=== PATIENT | female | born 1985 | race Caucasian/White ===

== ENCOUNTER 2024-04-17 21:22 | Emergency (ER) | payer MEDICAID ==
[2024-04-17] MEDS: Dexamethasone 4 MG/ML SDV PO ONE (23:14)
== END 2024-04-17 23:49 | disposition home or self-care (01) ==
LOC: MW.ED 21:22
DX: N61.1 Abscess of the breast and nipple (principal); J02.8 Acute pharyngitis due to other specified organisms
CPT/HCPCS: 87651; 99283; J1100

== ENCOUNTER 2024-05-05 12:15 | Emergency (ER) | payer MEDICAID ==
[2024-05-05] MEDS: Dexamethasone 4 MG Tab PO ONE (13:15)
== END 2024-05-05 13:21 | disposition home or self-care (01) ==
LOC: MW.ED 12:15
DX: H66.91 Otitis media, unspecified, right ear (principal)
CPT/HCPCS: 99282; J8540

== ENCOUNTER 2024-05-13 16:50 | Emergency (ER) | payer SELFPAY | END 2024-05-13 17:03 | disposition left against medical advice (07) | LOC: MW.ED 16:50 | DX: Z53.21 Procedure and treatment not carried out due to patient leaving prior to being seen by health care provider (principal) ==

== ENCOUNTER 2024-06-28 03:13 | Emergency (ER) | payer MEDICAID ==
[2024-06-28 03:36] LABS: APPEARANCE,URINE CLOUDY; GLUCOSE,URINE NEGATIVE (NEGATIVE); KETONES,URINE NEGATIVE (NEGATIVE); LEUKOCYTE ESTERASE,URINE NEGATIVE (NEGATIVE); NITRITE,URINE NEGATIVE (NEGATIVE); OCCULT BLOOD,URINE LARGE (NEGATIVE); PROTEIN,URINE 30 mg/dL (NEGATIVE); UROBILINOGEN,URINE 0.2 EU/dL (<2.0)
[2024-06-28 03:37] LABS: BILIRUBIN,URINE SMALL (NEGATIVE); COLOR,URINE PINK
[2024-06-28 03:39] LABS: BASOPHILS ABSOLUTE AUTO 0.04 K/uL (0.00-0.20); BASOPHILS PERCENT AUTO 0.4 % (0.0-1.0); EOSINOPHILS ABSOLUTE AUTO 0.19 K/uL (0.00-0.45); EOSINOPHILS PERCENT AUTO 2.1 % (0.0-6.0); HEMATOCRIT 34.3 % (37.0-47.0); HEMOGLOBIN 11.2 g/dL (12.0-16.0); IMMATURE GRAN ABSOLUTE AUTO 0.01 K/uL (0.00-0.05); IMMATURE GRAN PERCENT AUTO 0.1 % (0.0-0.4); LYMPHOCYTES ABSOLUTE AUTO 2.49 K/uL (1.00-4.80); LYMPHOCYTES PERCENT AUTO 27.9 % (24.0-44.0); MEAN CORPUSCULAR HEMOGLOBIN 24.6 pg (28.0-32.0); MEAN CORPUSCULAR HGB CONC 32.7 g/dL (32.0-36.0); MEAN CORPUSCULAR VOLUME 75.4 fL (83.0-99.0); MEAN PLATELET VOLUME 9.7 fL (9.4-12.3); MONOCYTES ABSOLUTE AUTO 0.55 K/uL (0.00-0.80); MONOCYTES PERCENT AUTO 6.2 % (0.0-8.0); NEUTROPHILS ABSOLUTE AUTO 5.66 K/uL (1.80-7.70); NEUTROPHILS PERCENT AUTO 63.3 % (41.0-71.0); PLATELET COUNT,PLT 315 K/uL (150-400); RED BLOOD CELL COUNT 4.55 M/uL (4.10-5.30); WHITE BLOOD CELL COUNT,WBC 8.94 K/uL (3.9-11.3)
[2024-06-28 03:43] LABS: BACTERIA,URINE FEW (NEGATIVE); EPITHELIAL CELLS,URINE RARE (NONE-FEW); RBC,URINE TOO NUMEROUS TO CT (0-2/HPF); WBC,URINE NONE SEEN (0-5/HPF)
[2024-06-28 03:53] LABS: CALCIUM 8.3 mg/dL (8.5-10.1); CARBON DIOXIDE,CO2 23.8 mmol/L (21.0-32.0); EST CRCL DRUG DOSING (CG) 75.63 mL/min
== END 2024-06-28 05:19 | disposition home or self-care (01) ==
LOC: MW.ED 03:13
DX: O20.0 Threatened abortion (principal); Z3A.01 Less than 8 weeks gestation of pregnancy; Z75.8 Other problems related to medical facilities and other health care
CPT/HCPCS: 36415; 76817; 76817-26; 80048; 81001; 81025; 84702; 85025; 86900; 86901; 99284

== ENCOUNTER 2025-01-29 16:54 | Inpatient (IN) | payer MEDICAID ==
[2025-01-29] MEDS ORDERED: Misoprostol 25 MCG (1/4 of 100 MCG) Tab VAG PRN (18:14)
[2025-01-29] MEDS ORDERED: Sodium Chloride 0.9% 2.5 ML Syringe FLUSH PRN (18:14)
[2025-01-29] MEDS ORDERED: Water For Irrigation,Sterile 1,000 ML Container IRR PRN (18:14)
[2025-01-29] MEDS ORDERED: Terbutaline 1 MG/ML SDV SUBCUT PRN (18:14)
[2025-01-29] MEDS ORDERED: Sodium Chloride 0.9% 10 ML Syringe FLUSH PRN (18:14)
[2025-01-29] MEDS ORDERED: Carboprost Tromethamine 250 MCG/1 mL Vial IM PRN (18:14)
[2025-01-29] MEDS: Misoprostol 25 MCG (1/4 of 100 MCG) Tab PO ONE (18:56)
[2025-01-29 18:58] LABS: IMMATURE GRAN ABSOLUTE AUTO 0.03 K/uL (0.00-0.05); IMMATURE GRAN PERCENT AUTO 0.3 % (0.0-0.4); MEAN PLATELET VOLUME 10.5 fL (9.4-12.3); NRBC ABSOLUTE 0.00 K/uL (0.00-0.02); NRBC PERCENT 0.0 /100WBC (0.0-0.2); PLATELET COUNT,PLT 261 K/uL (150-400); RED BLOOD CELL COUNT 4.51 M/uL (4.10-5.30); WHITE BLOOD CELL COUNT,WBC 8.95 K/uL (3.9-11.3)
[2025-01-29] MEDS: Misoprostol 25 MCG (1/4 of 100 MCG) Tab VAG PRN (19:06)
[2025-01-29] MEDS ORDERED: 50% Dextrose in Water 50 ML Syringe IVPUSH PRN (19:08)
[2025-01-29 19:23] LABS: A/G RATIO 0.8 (0.9-1.6); ALANINE AMINOTRANSFERASE,ALT 39.0 IU/L (14-63); ASPARTATE AMNIOTRANSFERASE,AST 20.0 IU/L (15-37); BILIRUBIN TOTAL 0.3 mg/dL (0.2-1.0); BLOOD UREA NITROGEN,BUN 10.0 mg/dL (7.0-18.0); CARBON DIOXIDE,CO2 24.4 mmol/L (21.0-32.0); CHLORIDE,CL 102.0 mmol/L (98-107); CREATININE 0.9 mg/dL (0.6-1.0); EST CRCL DRUG DOSING (CG) 83.23 mL/min; GLUCOSE RANDOM 100.0 mg/dL (74-106); POTASSIUM,K 3.8 mmol/L (3.5-5.1); PROTEIN TOTAL,TP 6.6 g/dL (6.4-8.2); SODIUM,NA 138.0 mmol/L (136-145)
[2025-01-29 19:25] LABS: ESTIMATED GFR 84.0 mL/min (>60)
[2025-01-29] MEDS: Insulin Glargine,Human Rec. Analog 100 Units/ML 3 ML Pen SUBCUT SCH (20:26)
[2025-01-29] MEDS ORDERED: Calcium Gluconate 10% 1 GM/10 ML SDV IV PRN (22:11)
[2025-01-29 22:28] LABS: CREATININE,URINE RAND 162.6 mg/dL; PROTEIN CREATININE RATIO,URINE 0.2; PROTEIN,URINE RANDOM 27.6 mg/dL (<11.9)
[2025-01-29] MEDS: Misoprostol 25 MCG (1/4 of 100 MCG) Tab PO SCH (23:00)
[2025-01-29] MEDS: Magnesium Sulfate 2 GM/50 mL 2 GM in Premix Bag 1 BAG IV ONE (23:11)
[2025-01-29] MEDS: Magnesium Sulfate 4 GM/100 mL 4 GM in Premix Bag 1 BAG IV ONE (23:11)
[2025-01-30] MEDS: Butorphanol 1 MG/ML SDV IVPUSH PRN (01:24)
[2025-01-30] MEDS ORDERED: 50% Dextrose in Water 50 ML Syringe IVPUSH PRN (04:25)
[2025-01-30] MEDS: Misoprostol 50 MCG (1/2 of 100 MCG) Tab VAG ONE (05:19)
[2025-01-30] MEDS: Lactated Ringers 1,000 ML IV SCH (05:22)
[2025-01-30] MEDS ORDERED: dexmedeTOMIDine HCl 200 MCG/2 ML SDV ONE (05:59)
[2025-01-30] MEDS ORDERED: Ropivacaine HCl/PF 200 ML ONE (05:59)
[2025-01-30] MEDS: Ropivacaine HCl/PF 400 MG in Premix Bag 1 BAG EPIDUR SCH (06:07)
[2025-01-30] MEDS ORDERED: ePHEDrine 50 MG/ML SDV IVPUSH PRN (06:23)
[2025-01-30] MEDS ORDERED: dexmedeTOMIDine HCl 200 MCG/2 ML SDV EPIDUR SCH (06:30)
[2025-01-30] MEDS: hydrALAZINE 20 MG/ML SDV IVPUSH PRN (06:38)
[2025-01-30] MEDS ORDERED: Sodium Chloride 0.9% 2.5 ML Syringe FLUSH PRN (06:56)
[2025-01-30] MEDS: Magnesium Sulfate 2 GM/50 mL 2 GM in Premix Bag 1 BAG IV ONE (07:12)
[2025-01-30] MEDS: Magnesium Sulfate 4 GM/100 mL 4 GM in Premix Bag 1 BAG IV ONE (07:23)
[2025-01-30] MEDS: Magnesium Sulfate 20 GM/500mL 20 GM/500 ML BAG IV SCH (07:45)
[2025-01-30] MEDS: Misoprostol 25 MCG (1/4 of 100 MCG) Tab VAG ONE (09:12)
[2025-01-30] MEDS: Ondansetron 4 MG/2 ML SDV IVPUSH PRN (10:10)
[2025-01-30] MEDS: Insulin Regular, Human 100 Units/ML 10 ML Vial SUBCUT PRN (12:00)
[2025-01-30] MEDS: Oxytocin/0.9 % Sodium Chloride 30 UNIT/500 ML BAG IV SCH (14:10)
[2025-01-30] MEDS: diphenhydrAMINE 50 MG/ML SDV IVPUSH ONE ×2 (22:02→22:38)
[2025-01-30] MEDS ORDERED: fentaNYL 100 MCG/2 ML SDV ONE (22:59)
[2025-01-31] MEDS: Oxytocin/0.9 % Sodium Chloride 30 UNIT/500 ML BAG IV SCH (06:33)
[2025-01-31] MEDS ORDERED: Lanolin 100% Cream 7 GM Tube TOP PRN (06:46)
[2025-01-31] MEDS ORDERED: Witch Hazel Medicated Pads 40/Jar TOP PRN (06:46)
[2025-01-31] MEDS ORDERED: Benzocaine/Menthol 20%-0.5% Spray 78 GM Cannister TOP PRN (06:46)
[2025-01-31] MEDS ORDERED: Oxytocin/0.9 % Sodium Chloride 30 UNIT/500 ML BAG IV SCH (07:00)
[2025-01-31] MEDS: ceFAZolin 2 GM in Water For Injection, Sterile 20 ML IVPUSH SCH (07:51)
[2025-02-01 08:54] LABS: A/G RATIO 0.6 (0.9-1.6); ALANINE AMINOTRANSFERASE,ALT 34.0 IU/L (14-63); ASPARTATE AMNIOTRANSFERASE,AST 28.0 IU/L (15-37); BILIRUBIN TOTAL 0.2 mg/dL (0.2-1.0); BLOOD UREA NITROGEN,BUN 14.0 mg/dL (7.0-18.0); CARBON DIOXIDE,CO2 21.1 mmol/L (21.0-32.0); CHLORIDE,CL 106.0 mmol/L (98-107); CREATININE 0.9 mg/dL (0.6-1.0); EST CRCL DRUG DOSING (CG) 83.23 mL/min; GLUCOSE RANDOM 100.0 mg/dL (74-106); POTASSIUM,K 3.9 mmol/L (3.5-5.1); PROTEIN TOTAL,TP 5.7 g/dL (6.4-8.2); SODIUM,NA 138.0 mmol/L (136-145)
[2025-02-01 08:57] LABS: ESTIMATED GFR 84.0 mL/min (>60)
[2025-02-01 08:58] LABS: BASOPHILS ABSOLUTE AUTO 0.02 K/uL (0.00-0.20); BASOPHILS PERCENT AUTO 0.2 % (0.0-1.0); EOSINOPHILS ABSOLUTE AUTO 0.26 K/uL (0.00-0.45); EOSINOPHILS PERCENT AUTO 3.0 % (0.0-6.0); IMMATURE GRAN ABSOLUTE AUTO 0.02 K/uL (0.00-0.05); IMMATURE GRAN PERCENT AUTO 0.2 % (0.0-0.4); LYMPHOCYTES ABSOLUTE AUTO 1.62 K/uL (1.00-4.80); LYMPHOCYTES PERCENT AUTO 18.5 % (24.0-44.0); MEAN PLATELET VOLUME 10.7 fL (9.4-12.3); MONOCYTES ABSOLUTE AUTO 0.46 K/uL (0.00-0.80); MONOCYTES PERCENT AUTO 5.3 % (0.0-8.0); NEUTROPHILS ABSOLUTE AUTO 6.37 K/uL (1.80-7.70); NEUTROPHILS PERCENT AUTO 72.8 % (41.0-71.0); NRBC ABSOLUTE 0.00 K/uL (0.00-0.02); NRBC PERCENT 0.0 /100WBC (0.0-0.2); PLATELET COUNT,PLT 262 K/uL (150-400); RED BLOOD CELL COUNT 3.66 M/uL (4.10-5.30); WHITE BLOOD CELL COUNT,WBC 8.75 K/uL (3.9-11.3)
[2025-02-01] MEDS: Sodium Ferric Gluconate Cmplex 125 MG in Sodium Chloride 0.9% 100 ML IV SCH (09:03)
[2025-02-01] MEDS: NIFEdipine 30 MG Tab.ER PO SCH (09:08)
[2025-02-02 06:12] LABS: BASOPHILS ABSOLUTE AUTO 0.04 K/uL (0.00-0.20); BASOPHILS PERCENT AUTO 0.5 % (0.0-1.0); EOSINOPHILS ABSOLUTE AUTO 0.27 K/uL (0.00-0.45); EOSINOPHILS PERCENT AUTO 3.6 % (0.0-6.0); IMMATURE GRAN ABSOLUTE AUTO 0.03 K/uL (0.00-0.05); IMMATURE GRAN PERCENT AUTO 0.4 % (0.0-0.4); LYMPHOCYTES ABSOLUTE AUTO 1.81 K/uL (1.00-4.80); LYMPHOCYTES PERCENT AUTO 24.1 % (24.0-44.0); MEAN PLATELET VOLUME 10.0 fL (9.4-12.3); MONOCYTES ABSOLUTE AUTO 0.42 K/uL (0.00-0.80); MONOCYTES PERCENT AUTO 5.6 % (0.0-8.0); NEUTROPHILS ABSOLUTE AUTO 4.93 K/uL (1.80-7.70); NEUTROPHILS PERCENT AUTO 65.8 % (41.0-71.0); NRBC ABSOLUTE 0.00 K/uL (0.00-0.02); NRBC PERCENT 0.0 /100WBC (0.0-0.2); PLATELET COUNT,PLT 263 K/uL (150-400); RED BLOOD CELL COUNT 3.58 M/uL (4.10-5.30); WHITE BLOOD CELL COUNT,WBC 7.50 K/uL (3.9-11.3)
[2025-02-02 06:36] LABS: A/G RATIO 0.7 (0.9-1.6); ALANINE AMINOTRANSFERASE,ALT 29.0 IU/L (14-63); ASPARTATE AMNIOTRANSFERASE,AST 22.0 IU/L (15-37); BILIRUBIN TOTAL 0.2 mg/dL (0.2-1.0); BLOOD UREA NITROGEN,BUN 23.0 mg/dL (7.0-18.0); CARBON DIOXIDE,CO2 23.6 mmol/L (21.0-32.0); CHLORIDE,CL 107.0 mmol/L (98-107); CREATININE 0.9 mg/dL (0.6-1.0); EST CRCL DRUG DOSING (CG) 83.23 mL/min; GLUCOSE RANDOM 83.0 mg/dL (74-106); POTASSIUM,K 4.0 mmol/L (3.5-5.1); PROTEIN TOTAL,TP 6.1 g/dL (6.4-8.2); SODIUM,NA 144.0 mmol/L (136-145)
[2025-02-02 06:37] LABS: ESTIMATED GFR 84.0 mL/min (>60)
[2025-02-02] MEDS: NIFEdipine 30 MG Tab.ER PO STA ×2 (10:24→18:32)
[2025-02-02 13:05] LABS: BASOPHILS ABSOLUTE AUTO 0.02 K/uL (0.00-0.20); BASOPHILS PERCENT AUTO 0.3 % (0.0-1.0); EOSINOPHILS ABSOLUTE AUTO 0.28 K/uL (0.00-0.45); EOSINOPHILS PERCENT AUTO 4.1 % (0.0-6.0); IMMATURE GRAN ABSOLUTE AUTO 0.02 K/uL (0.00-0.05); IMMATURE GRAN PERCENT AUTO 0.3 % (0.0-0.4); LYMPHOCYTES ABSOLUTE AUTO 1.37 K/uL (1.00-4.80); LYMPHOCYTES PERCENT AUTO 20.1 % (24.0-44.0); MEAN PLATELET VOLUME 9.7 fL (9.4-12.3); MONOCYTES ABSOLUTE AUTO 0.32 K/uL (0.00-0.80); MONOCYTES PERCENT AUTO 4.7 % (0.0-8.0); NEUTROPHILS ABSOLUTE AUTO 4.81 K/uL (1.80-7.70); NEUTROPHILS PERCENT AUTO 70.5 % (41.0-71.0); NRBC ABSOLUTE 0.00 K/uL (0.00-0.02); NRBC PERCENT 0.0 /100WBC (0.0-0.2); PLATELET COUNT,PLT 261 K/uL (150-400); RED BLOOD CELL COUNT 3.47 M/uL (4.10-5.30); WHITE BLOOD CELL COUNT,WBC 6.82 K/uL (3.9-11.3)
[2025-02-02] MEDS: Labetalol 100 MG/20 ML MDV IVPUSH PRN (13:08)
[2025-02-02 13:30] LABS: A/G RATIO 0.7 (0.9-1.6); ALANINE AMINOTRANSFERASE,ALT 38.0 IU/L (14-63); ASPARTATE AMNIOTRANSFERASE,AST 29.0 IU/L (15-37); BILIRUBIN TOTAL 0.2 mg/dL (0.2-1.0); BLOOD UREA NITROGEN,BUN 19.0 mg/dL (7.0-18.0); CARBON DIOXIDE,CO2 23.1 mmol/L (21.0-32.0); CHLORIDE,CL 104.0 mmol/L (98-107); CREATININE 0.9 mg/dL (0.6-1.0); EST CRCL DRUG DOSING (CG) 83.23 mL/min; GLUCOSE RANDOM 111.0 mg/dL (74-106); POTASSIUM,K 3.9 mmol/L (3.5-5.1); PROTEIN TOTAL,TP 6.0 g/dL (6.4-8.2); SODIUM,NA 139.0 mmol/L (136-145)
[2025-02-02] MEDS: Magnesium Sulfate 20 GM/500mL 20 GM/500 ML BAG IV SCH (13:32)
[2025-02-02 13:34] LABS: ESTIMATED GFR 84.0 mL/min (>60)
[2025-02-02 16:33] LABS: CREATININE,URINE RAND 79.8 mg/dL; PROTEIN CREATININE RATIO,URINE 0.7; PROTEIN,URINE RANDOM 56.8 mg/dL (<11.9)
[2025-02-02] MEDS: Labetalol 100 MG/20 ML MDV ONE (17:34)
[2025-02-02 19:45] LABS: INR < 0.93 (0.86-1.11)
[2025-02-03 05:27] LABS: BASOPHILS ABSOLUTE AUTO 0.02 K/uL (0.00-0.20); BASOPHILS PERCENT AUTO 0.3 % (0.0-1.0); EOSINOPHILS ABSOLUTE AUTO 0.28 K/uL (0.00-0.45); EOSINOPHILS PERCENT AUTO 4.5 % (0.0-6.0); IMMATURE GRAN ABSOLUTE AUTO 0.01 K/uL (0.00-0.05); IMMATURE GRAN PERCENT AUTO 0.2 % (0.0-0.4); LYMPHOCYTES ABSOLUTE AUTO 1.56 K/uL (1.00-4.80); LYMPHOCYTES PERCENT AUTO 25.1 % (24.0-44.0); MEAN PLATELET VOLUME 9.6 fL (9.4-12.3); MONOCYTES ABSOLUTE AUTO 0.35 K/uL (0.00-0.80); MONOCYTES PERCENT AUTO 5.6 % (0.0-8.0); NEUTROPHILS ABSOLUTE AUTO 4.00 K/uL (1.80-7.70); NEUTROPHILS PERCENT AUTO 64.3 % (41.0-71.0); NRBC ABSOLUTE 0.00 K/uL (0.00-0.02); NRBC PERCENT 0.0 /100WBC (0.0-0.2); PLATELET COUNT,PLT 261 K/uL (150-400); RED BLOOD CELL COUNT 3.44 M/uL (4.10-5.30); WHITE BLOOD CELL COUNT,WBC 6.22 K/uL (3.9-11.3)
[2025-02-03 05:51] LABS: A/G RATIO 0.8 (0.9-1.6); ALANINE AMINOTRANSFERASE,ALT 42.0 IU/L (14-63); ASPARTATE AMNIOTRANSFERASE,AST 44.0 IU/L (15-37); BILIRUBIN TOTAL 0.3 mg/dL (0.2-1.0); BLOOD UREA NITROGEN,BUN 15.0 mg/dL (7.0-18.0); CARBON DIOXIDE,CO2 26.4 mmol/L (21.0-32.0); CHLORIDE,CL 106.0 mmol/L (98-107); CREATININE 0.9 mg/dL (0.6-1.0); EST CRCL DRUG DOSING (CG) 83.23 mL/min; GLUCOSE RANDOM 92.0 mg/dL (74-106); POTASSIUM,K 3.9 mmol/L (3.5-5.1); PROTEIN TOTAL,TP 5.8 g/dL (6.4-8.2); SODIUM,NA 142.0 mmol/L (136-145)
[2025-02-03 05:55] LABS: ESTIMATED GFR 84.0 mL/min (>60)
[2025-02-03] MEDS: Sodium Chloride 0.9% 10 ML Syringe FLUSH PRN (07:35)
[2025-02-03 08:08] LABS: CREATININE,URINE RAND 56.7 mg/dL; PROTEIN CREATININE RATIO,URINE 0.5; PROTEIN,URINE RANDOM 28.4 mg/dL (<11.9)
[2025-02-03] MEDS: NIFEdipine 30 MG Tab.ER PO SCH (09:09)
[2025-02-04] MEDS: SODIUM CHLORIDE 0.9% IV ONE (10:05)
[2025-02-04] MEDS: SODIUM FERRIC GLUCONATE CMPLEX IV ONE (10:05)
[2025-02-04] MEDS: Magnesium Sulfate 4 GM/100 mL 4 GM in Premix Bag 1 BAG IV ONE (10:57)
[2025-02-04] MEDS ORDERED: Calcium Gluconate 10% 1 GM/10 ML SDV IV PRN (10:59)
[2025-02-04] MEDS ORDERED: Sodium Chloride 0.9% 10 ML Syringe FLUSH PRN (10:59)
[2025-02-04] MEDS ORDERED: Sodium Chloride 0.9% 2.5 ML Syringe FLUSH PRN (10:59)
[2025-02-04] MEDS: Magnesium Sulfate 20 GM/500mL 20 GM/500 ML BAG IV SCH (11:17)
[2025-02-04 13:19] LABS: BASOPHILS ABSOLUTE AUTO 0.03 K/uL (0.00-0.20); BASOPHILS PERCENT AUTO 0.4 % (0.0-1.0); EOSINOPHILS ABSOLUTE AUTO 0.27 K/uL (0.00-0.45); EOSINOPHILS PERCENT AUTO 3.2 % (0.0-6.0); IMMATURE GRAN ABSOLUTE AUTO 0.08 K/uL (0.00-0.05); IMMATURE GRAN PERCENT AUTO 1.0 % (0.0-0.4); LYMPHOCYTES ABSOLUTE AUTO 1.54 K/uL (1.00-4.80); LYMPHOCYTES PERCENT AUTO 18.5 % (24.0-44.0); MEAN PLATELET VOLUME 9.6 fL (9.4-12.3); MONOCYTES ABSOLUTE AUTO 0.44 K/uL (0.00-0.80); MONOCYTES PERCENT AUTO 5.3 % (0.0-8.0); NEUTROPHILS ABSOLUTE AUTO 5.98 K/uL (1.80-7.70); NEUTROPHILS PERCENT AUTO 71.6 % (41.0-71.0); NRBC ABSOLUTE 0.00 K/uL (0.00-0.02); NRBC PERCENT 0.0 /100WBC (0.0-0.2); PLATELET COUNT,PLT 332 K/uL (150-400); RED BLOOD CELL COUNT 3.88 M/uL (4.10-5.30); WHITE BLOOD CELL COUNT,WBC 8.34 K/uL (3.9-11.3)
[2025-02-04 13:40] LABS: A/G RATIO 0.8 (0.9-1.6); ALANINE AMINOTRANSFERASE,ALT 65.0 IU/L (14-63); ASPARTATE AMNIOTRANSFERASE,AST 49.0 IU/L (15-37); BILIRUBIN TOTAL 0.2 mg/dL (0.2-1.0); BLOOD UREA NITROGEN,BUN 14.0 mg/dL (7.0-18.0); CARBON DIOXIDE,CO2 25.3 mmol/L (21.0-32.0); CHLORIDE,CL 104.0 mmol/L (98-107); CREATININE 0.9 mg/dL (0.6-1.0); EST CRCL DRUG DOSING (CG) 83.23 mL/min; GLUCOSE RANDOM 106.0 mg/dL (74-106); POTASSIUM,K 4.2 mmol/L (3.5-5.1); PROTEIN TOTAL,TP 6.6 g/dL (6.4-8.2); SODIUM,NA 140.0 mmol/L (136-145)
[2025-02-04 13:42] LABS: ESTIMATED GFR 84.0 mL/min (>60)
[2025-02-04] MEDS: Labetalol 100 MG/20 ML MDV ONE (14:30)
[2025-02-04] MEDS ORDERED: Benzocaine/Menthol 20%-0.5% Spray 78 GM Cannister TOP PRN (16:07)
[2025-02-04 17:02] LABS: CREATININE,URINE RAND 15.8 mg/dL; PROTEIN CREATININE RATIO,URINE 0.9; PROTEIN,URINE RANDOM 13.7 mg/dL (<11.9)
[2025-02-04] MEDS ORDERED: Labetalol 100 MG/20 ML MDV ONE (18:04)
[2025-02-04] MEDS: NIFEdipine 30 MG Tab.ER PO SCH (21:04)
[2025-02-05] MEDS: Labetalol 100 MG/20 ML MDV IVPUSH PRN
[2025-02-05 08:15] LABS: BASOPHILS ABSOLUTE AUTO 0.04 K/uL (0.00-0.20); BASOPHILS PERCENT AUTO 0.5 % (0.0-1.0); EOSINOPHILS ABSOLUTE AUTO 0.26 K/uL (0.00-0.45); EOSINOPHILS PERCENT AUTO 3.1 % (0.0-6.0); IMMATURE GRAN ABSOLUTE AUTO 0.11 K/uL (0.00-0.05); IMMATURE GRAN PERCENT AUTO 1.3 % (0.0-0.4); LYMPHOCYTES ABSOLUTE AUTO 1.38 K/uL (1.00-4.80); LYMPHOCYTES PERCENT AUTO 16.5 % (24.0-44.0); MEAN PLATELET VOLUME 9.6 fL (9.4-12.3); MONOCYTES ABSOLUTE AUTO 0.47 K/uL (0.00-0.80); MONOCYTES PERCENT AUTO 5.6 % (0.0-8.0); NEUTROPHILS ABSOLUTE AUTO 6.10 K/uL (1.80-7.70); NEUTROPHILS PERCENT AUTO 73.0 % (41.0-71.0); NRBC ABSOLUTE 0.00 K/uL (0.00-0.02); NRBC PERCENT 0.0 /100WBC (0.0-0.2); PLATELET COUNT,PLT 373 K/uL (150-400); RED BLOOD CELL COUNT 4.04 M/uL (4.10-5.30); WHITE BLOOD CELL COUNT,WBC 8.36 K/uL (3.9-11.3)
[2025-02-05 08:58] LABS: A/G RATIO 0.8 (0.9-1.6); ALANINE AMINOTRANSFERASE,ALT 78.0 IU/L (14-63); ASPARTATE AMNIOTRANSFERASE,AST 52.0 IU/L (15-37); BILIRUBIN TOTAL 0.3 mg/dL (0.2-1.0); BLOOD UREA NITROGEN,BUN 12.0 mg/dL (7.0-18.0); CARBON DIOXIDE,CO2 23.7 mmol/L (21.0-32.0); CHLORIDE,CL 104.0 mmol/L (98-107); CREATININE 1.0 mg/dL (0.6-1.0); EST CRCL DRUG DOSING (CG) 74.9 mL/min; GLUCOSE RANDOM 120.0 mg/dL (74-106); POTASSIUM,K 4.6 mmol/L (3.5-5.1); PROTEIN TOTAL,TP 6.9 g/dL (6.4-8.2); SODIUM,NA 139.0 mmol/L (136-145)
[2025-02-05 08:59] LABS: ESTIMATED GFR 74.0 mL/min (>60)
[2025-02-05] MEDS: niCARdipine/Normal Saline 20 MG in Premix Bag 1 BAG IV SCH (10:12)
[2025-02-05] MEDS: NIFEdipine 30 MG Tab.ER PO SCH (11:15)
[2025-02-06 04:23] LABS: BASOPHILS ABSOLUTE AUTO 0.02 K/uL (0.00-0.20); BASOPHILS PERCENT AUTO 0.2 % (0.0-1.0); EOSINOPHILS ABSOLUTE AUTO 0.27 K/uL (0.00-0.45); EOSINOPHILS PERCENT AUTO 3.1 % (0.0-6.0); IMMATURE GRAN ABSOLUTE AUTO 0.11 K/uL (0.00-0.05); IMMATURE GRAN PERCENT AUTO 1.2 % (0.0-0.4); LYMPHOCYTES ABSOLUTE AUTO 1.60 K/uL (1.00-4.80); LYMPHOCYTES PERCENT AUTO 18.1 % (24.0-44.0); MEAN PLATELET VOLUME 9.3 fL (9.4-12.3); MONOCYTES ABSOLUTE AUTO 0.63 K/uL (0.00-0.80); MONOCYTES PERCENT AUTO 7.1 % (0.0-8.0); NEUTROPHILS ABSOLUTE AUTO 6.21 K/uL (1.80-7.70); NEUTROPHILS PERCENT AUTO 70.3 % (41.0-71.0); NRBC ABSOLUTE 0.00 K/uL (0.00-0.02); NRBC PERCENT 0.0 /100WBC (0.0-0.2); PLATELET COUNT,PLT 377 K/uL (150-400); RED BLOOD CELL COUNT 3.95 M/uL (4.10-5.30); WHITE BLOOD CELL COUNT,WBC 8.84 K/uL (3.9-11.3)
[2025-02-06 04:46] LABS: A/G RATIO 0.9 (0.9-1.6); ALANINE AMINOTRANSFERASE,ALT 78.0 IU/L (14-63); ASPARTATE AMNIOTRANSFERASE,AST 43.0 IU/L (15-37); BILIRUBIN TOTAL 0.3 mg/dL (0.2-1.0); BLOOD UREA NITROGEN,BUN 13.0 mg/dL (7.0-18.0); CARBON DIOXIDE,CO2 25.0 mmol/L (21.0-32.0); CHLORIDE,CL 105.0 mmol/L (98-107); CREATININE 1.0 mg/dL (0.6-1.0); EST CRCL DRUG DOSING (CG) 74.9 mL/min; GLUCOSE RANDOM 132.0 mg/dL (74-106); POTASSIUM,K 4.0 mmol/L (3.5-5.1); PROTEIN TOTAL,TP 6.5 g/dL (6.4-8.2); SODIUM,NA 141.0 mmol/L (136-145)
[2025-02-06 04:53] LABS: ESTIMATED GFR 74.0 mL/min (>60)
[2025-02-06] MEDS: Magnesium Sulfate 20 GM/500mL 20 GM/500 ML BAG IV SCH (05:26)
[2025-02-06 18:26] LABS: A/G RATIO 0.9 (0.9-1.6); ALANINE AMINOTRANSFERASE,ALT 97.0 IU/L (14-63); ASPARTATE AMNIOTRANSFERASE,AST 45.0 IU/L (15-37); BILIRUBIN TOTAL 0.4 mg/dL (0.2-1.0); BLOOD UREA NITROGEN,BUN 15.0 mg/dL (7.0-18.0); CARBON DIOXIDE,CO2 23.9 mmol/L (21.0-32.0); CHLORIDE,CL 102.0 mmol/L (98-107); CREATININE 1.1 mg/dL (0.6-1.0); EST CRCL DRUG DOSING (CG) 68.09 mL/min; ESTIMATED GFR 66.0 mL/min (>60); GLUCOSE RANDOM 111.0 mg/dL (74-106); POTASSIUM,K 4.3 mmol/L (3.5-5.1); PROTEIN TOTAL,TP 7.4 g/dL (6.4-8.2); SODIUM,NA 137.0 mmol/L (136-145)
== END 2025-02-06 21:50 | disposition home or self-care (01) | DRG 806 ==
LOC: MW.OBCHECK 16:54 → MW.OB 16:55 → MW.OBCHECK 01-30 20:39 → MW.OB 01-30 20:40 → OBSVTOIN 01-31 06:05 → MW.OB 01-31 21:25 → MW.ICU 02-05 08:50 → MW.OB 02-06 15:10
PROVIDERS: ADMIT Obstetrics & Gynecology; ATTEND Obstetrics & Gynecology
PROC: 10E0XZZ Delivery of Products of Conception, External Approach (ICD-10-PCS; principal; 2025-01-31)
PROC: 3E0R3BZ Introduction of Anesthetic Agent into Spinal Canal, Percutaneous Approach (ICD-10-PCS; 2025-01-31)
PROC: 0HQ9XZZ Repair Perineum Skin, External Approach (ICD-10-PCS; 2025-01-31)
PROC: 3E0DXGC Introduction of Other Therapeutic Substance into Mouth and Pharynx, External Approach (ICD-10-PCS; 2025-01-31)
PROC: 0U7C7DJ Dilation of Cervix with Intraluminal Device, Temporary, Via Natural or Artificial Opening (ICD-10-PCS; 2025-01-31)
DX: O10.92 Unspecified pre-existing hypertension complicating childbirth (principal); O72.1 Other immediate postpartum hemorrhage; Z37.0 Single live birth; O14.14 Severe pre-eclampsia complicating childbirth; R74.01 Elevation of levels of liver transaminase levels; O24.420 Gestational diabetes mellitus in childbirth, diet controlled; O99.214 Obesity complicating childbirth; E66.01 Morbid (severe) obesity due to excess calories; O90.81 Anemia of the puerperium; O73.0 Retained placenta without hemorrhage; O70.0 First degree perineal laceration during delivery; Z79.82 Long term (current) use of aspirin; Z79.4 Long term (current) use of insulin; Z79.899 Other long term (current) drug therapy; Z3A.37 37 weeks gestation of pregnancy
CPT/HCPCS: 01967; 36415; 51702; 59025; 59409; 80053; 82570; 82947; 83605; 83735; 84156; 84550; 85025; 85027; 85384; 85610; 86592; 86850; 86900; 86901; 93971-26-LT; 93971-LT; A4216; A9270-GY; J0360; J0595; J0665; J0690; J1200; J1815-GY; J1920; J2371; J2405; J2590; J2795; J2916; J3010; J3475; J3490; J7120

== ENCOUNTER 2025-03-09 18:23 | Emergency (ER) | payer MEDICAID, OTHER ==
[2025-03-09 19:36] LABS: BASOPHILS ABSOLUTE AUTO 0.03 K/uL (0.00-0.20); BASOPHILS PERCENT AUTO 0.3 % (0.0-1.0); EOSINOPHILS ABSOLUTE AUTO 0.25 K/uL (0.00-0.45); EOSINOPHILS PERCENT AUTO 2.2 % (0.0-6.0); IMMATURE GRAN ABSOLUTE AUTO 0.04 K/uL (0.00-0.05); IMMATURE GRAN PERCENT AUTO 0.4 % (0.0-0.4); LYMPHOCYTES ABSOLUTE AUTO 2.01 K/uL (1.00-4.80); LYMPHOCYTES PERCENT AUTO 18.0 % (24.0-44.0); MEAN PLATELET VOLUME 9.6 fL (9.4-12.3); MONOCYTES ABSOLUTE AUTO 0.55 K/uL (0.00-0.80); MONOCYTES PERCENT AUTO 4.9 % (0.0-8.0); NEUTROPHILS ABSOLUTE AUTO 8.28 K/uL (1.80-7.70); NEUTROPHILS PERCENT AUTO 74.2 % (41.0-71.0); NRBC ABSOLUTE 0.00 K/uL (0.00-0.02); NRBC PERCENT 0.0 /100WBC (0.0-0.2); PLATELET COUNT,PLT 357 K/uL (150-400); RED BLOOD CELL COUNT 4.61 M/uL (4.10-5.30); WHITE BLOOD CELL COUNT,WBC 11.16 K/uL (3.9-11.3)
[2025-03-09 19:57] LABS: A/G RATIO 1.1 (0.9-1.6); ALANINE AMINOTRANSFERASE,ALT 67.0 IU/L (14-63); ASPARTATE AMNIOTRANSFERASE,AST 28.0 IU/L (15-37); BILIRUBIN TOTAL 0.2 mg/dL (0.2-1.0); BLOOD UREA NITROGEN,BUN 13.0 mg/dL (7.0-18.0); CARBON DIOXIDE,CO2 30.0 mmol/L (21.0-32.0); CHLORIDE,CL 104.0 mmol/L (98-107); CREATININE 1.0 mg/dL (0.6-1.0); EST CRCL DRUG DOSING (CG) 74.9 mL/min; GLUCOSE RANDOM 118.0 mg/dL (74-106); POTASSIUM,K 3.7 mmol/L (3.5-5.1); PROTEIN TOTAL,TP 7.4 g/dL (6.4-8.2); SODIUM,NA 143.0 mmol/L (136-145)
[2025-03-09 20:10] LABS: ESTIMATED GFR 74.0 mL/min (>60)
[2025-03-09] MEDS: Acetaminophen/HYDROcodone 325-5 MG Tab PO ONE (20:39)
== END 2025-03-09 20:51 | disposition home or self-care (01) ==
LOC: MW.ED 18:23
DX: O99.355 Diseases of the nervous system complicating the puerperium (principal); G97.82 Other postprocedural complications and disorders of nervous system; O10.93 Unspecified pre-existing hypertension complicating the puerperium; Z79.899 Other long term (current) drug therapy
CPT/HCPCS: 36415; 80053; 85025; 85379; 93971; 99284; A9270

== ENCOUNTER 2025-03-16 14:36 | Emergency (ER) | payer MEDICAID ==
[2025-03-16 17:59] LABS: BASOPHILS ABSOLUTE AUTO 0.03 K/uL (0.00-0.20); BASOPHILS PERCENT AUTO 0.3 % (0.0-1.0); EOSINOPHILS ABSOLUTE AUTO 0.23 K/uL (0.00-0.45); EOSINOPHILS PERCENT AUTO 2.0 % (0.0-6.0); IMMATURE GRAN ABSOLUTE AUTO 0.04 K/uL (0.00-0.05); IMMATURE GRAN PERCENT AUTO 0.3 % (0.0-0.4); LYMPHOCYTES ABSOLUTE AUTO 2.30 K/uL (1.00-4.80); LYMPHOCYTES PERCENT AUTO 20.0 % (24.0-44.0); MEAN PLATELET VOLUME 9.3 fL (9.4-12.3); MONOCYTES ABSOLUTE AUTO 0.68 K/uL (0.00-0.80); MONOCYTES PERCENT AUTO 5.9 % (0.0-8.0); NEUTROPHILS ABSOLUTE AUTO 8.21 K/uL (1.80-7.70); NEUTROPHILS PERCENT AUTO 71.5 % (41.0-71.0); NRBC ABSOLUTE 0.00 K/uL (0.00-0.02); NRBC PERCENT 0.0 /100WBC (0.0-0.2); PLATELET COUNT,PLT 344 K/uL (150-400); RED BLOOD CELL COUNT 4.75 M/uL (4.10-5.30); WHITE BLOOD CELL COUNT,WBC 11.49 K/uL (3.9-11.3)
[2025-03-16] MEDS: Ketorolac 30 MG/ML SDV IVPUSH ONE (18:04)
[2025-03-16 18:32] LABS: A/G RATIO 1.1 (0.9-1.6); ALANINE AMINOTRANSFERASE,ALT 54.0 IU/L (14-63); ASPARTATE AMNIOTRANSFERASE,AST 30.0 IU/L (15-37); BILIRUBIN TOTAL 0.4 mg/dL (0.2-1.0); BLOOD UREA NITROGEN,BUN 9.0 mg/dL (7.0-18.0); CARBON DIOXIDE,CO2 28.0 mmol/L (21.0-32.0); CHLORIDE,CL 102.0 mmol/L (98-107); CREATININE 0.9 mg/dL (0.6-1.0); EST CRCL DRUG DOSING (CG) 83.23 mL/min; GLUCOSE RANDOM 103.0 mg/dL (74-106); POTASSIUM,K 3.4 mmol/L (3.5-5.1); PROTEIN TOTAL,TP 7.5 g/dL (6.4-8.2); SODIUM,NA 142.0 mmol/L (136-145)
[2025-03-16] MEDS: Iopamidol 755 Mg/ML 100 ML Bottle IVPUSH ONE (18:37)
[2025-03-16 18:42] LABS: ESTIMATED GFR 84.0 mL/min (>60)
[2025-03-16 19:30] LABS: APPEARANCE,URINE CLEAR; GLUCOSE,URINE NEGATIVE (NEGATIVE); OCCULT BLOOD,URINE NEGATIVE (NEGATIVE)
== END 2025-03-16 20:10 | disposition home or self-care (01) ==
LOC: MW.ED 14:36
DX: M54.42 Lumbago with sciatica, left side (principal); I10 Essential (primary) hypertension; Z79.899 Other long term (current) drug therapy
CPT/HCPCS: 36415; 72133; 80053; 81003; 84703; 85025; 96374; 99284; A9270; J1885; Q9967

== ENCOUNTER 2025-04-19 17:38 | Emergency (ER) | payer MEDICAID, OTHER ==
[2025-04-19] MEDS ORDERED: Sodium Chloride 0.9% 10 ML Syringe FLUSH PRN (17:51)
[2025-04-19] MEDS ORDERED: Sodium Chloride 0.9% 2.5 ML Syringe FLUSH PRN (17:51)
[2025-04-19 18:07] LABS: BASOPHILS ABSOLUTE AUTO 0.04 K/uL (0.00-0.20); BASOPHILS PERCENT AUTO 0.3 % (0.0-1.0); EOSINOPHILS ABSOLUTE AUTO 0.25 K/uL (0.00-0.45); EOSINOPHILS PERCENT AUTO 2.1 % (0.0-6.0); IMMATURE GRAN ABSOLUTE AUTO 0.04 K/uL (0.00-0.05); IMMATURE GRAN PERCENT AUTO 0.3 % (0.0-0.4); LYMPHOCYTES ABSOLUTE AUTO 2.52 K/uL (1.00-4.80); LYMPHOCYTES PERCENT AUTO 21.4 % (24.0-44.0); MEAN PLATELET VOLUME 9.6 fL (9.4-12.3); MONOCYTES ABSOLUTE AUTO 0.64 K/uL (0.00-0.80); MONOCYTES PERCENT AUTO 5.4 % (0.0-8.0); NEUTROPHILS ABSOLUTE AUTO 8.31 K/uL (1.80-7.70); NEUTROPHILS PERCENT AUTO 70.5 % (41.0-71.0); NRBC ABSOLUTE 0.00 K/uL (0.00-0.02); NRBC PERCENT 0.0 /100WBC (0.0-0.2); PLATELET COUNT,PLT 356 K/uL (150-400); RED BLOOD CELL COUNT 4.78 M/uL (4.10-5.30); WHITE BLOOD CELL COUNT,WBC 11.80 K/uL (3.9-11.3)
[2025-04-19 18:28] LABS: GLUCOSE,URINE NEGATIVE (NEGATIVE); OCCULT BLOOD,URINE LARGE (NEGATIVE)
[2025-04-19 18:28] LABS: A/G RATIO 1.2 (0.9-1.6); ALANINE AMINOTRANSFERASE,ALT 66 IU/L (14-63); ASPARTATE AMNIOTRANSFERASE,AST 21 IU/L (15-37); BILIRUBIN TOTAL 0.4 mg/dL (0.2-1.0); BLOOD UREA NITROGEN,BUN 14 mg/dL (7.0-18.0); CARBON DIOXIDE,CO2 26.3 mmol/L (21.0-32.0); CHLORIDE,CL 104 mmol/L (98-107); CREATININE 0.9 mg/dL (0.6-1.0); GLUCOSE RANDOM 100 mg/dL (74-106); POTASSIUM,K 3.9 mmol/L (3.5-5.1); PROTEIN TOTAL,TP 6.9 g/dL (6.4-8.2); SODIUM,NA 139 mmol/L (136-145)
[2025-04-19 18:31] LABS: APPEARANCE,URINE BLOODY
[2025-04-19 18:32] LABS: EPITHELIAL CELLS,URINE OCCASIONAL (NONE-FEW)
[2025-04-19 18:39] LABS: ESTIMATED GFR 84 mL/min (>60)
[2025-04-19 19:11] LABS: INR 0.97 (0.86-1.11); PTT,PARTIAL THROMBOPLSTIN TIME 29.1 SEC (23.9-30.7)
== END 2025-04-19 22:12 | disposition home or self-care (01) ==
LOC: MW.ED 17:38
DX: N92.1 Excessive and frequent menstruation with irregular cycle (principal); I10 Essential (primary) hypertension
CPT/HCPCS: 36415; 76857; 80053; 81001; 85025; 85384; 85610; 85730; 86850; 86900; 86901; 99284; A9270; J7030